=== PATIENT | female | born 1965 | race Caucasian/White ===

== ENCOUNTER 2022-05-24 18:44 | Emergency (ER) | payer OTHER, BC ==
[~2022-05-24] VITALS: Ht 165.1 cm; Wt 68.0 kg
[2022-05-24 19:23] VITALS: BP 122/86
[2022-05-24] MEDS ORDERED: POLYSOL15 OP ×2 (20:53→21:08)
== END 2022-05-24 21:07 | disposition home or self-care (01) ==
LOC: ER 18:44
DX: S05.02XA Injury of conjunctiva and corneal abrasion without foreign body, left eye, initial encounter (principal); X58.XXXA Exposure to other specified factors, initial encounter; Y93.89 Activity, other specified; Y92.89 Other specified places as the place of occurrence of the external cause; Y99.8 Other external cause status